=== PATIENT | female | born 1995 | race Caucasian/White ===

== ENCOUNTER 2017-04-14 11:30 | Emergency (ER) | payer BC ==
[2017-04-14 11:42] VITALS: BP 118/76
--- NOTE | 2017-04-14 11:59 | UC ---
Respiratory Complaint HPI - HPI Summary HPI Summary: cough x 1 week + chest congestion, nasal congestion, pnd no fever, no chills , no sob - History of Current Complaint Chief Complaint: UCRespiratory Stated Complaint: COUGH Time Seen by Provider: 04/14/17 11:52 Hx Obtained From: Patient Onset/Duration: Gradual Onset, Lasting Days - 6, Still Present Timing: Constant Severity Initially: Moderate Severity Currently: Moderate Character: Cough: Productive Aggravating Factors: Exertion, Deep Breaths Alleviating Factors: Nothing Associated Signs And Symptoms: Positive: Negative, URI, Nasal Congestion. Negative: Fever, Chills, Pleuritic Chest Pain, Wheezing, Calf Pain, Calf Swelling - Allergies/Home Medications Allergies/Adverse Reactions: Allergies Allergy/AdvReac Type Severity Reaction Status Date / Time No Known Allergies Allergy Verified 04/14/17 11:42 Home Medications: Home Medications NK [No Home Medications Reported] 04/14/17 [History Confirmed 04/14/17] PMH/Surg Hx/FS Hx/Imm Hx Previously Healthy: Yes - Surgical History Surgical History: Yes Surgery Procedure, Year, and Place: [place] 09/2016 - Family History Known Family History: Negative: Diabetes, Other - appendix removal - Social History Alcohol Use: None Substance Use Type: None Smoking Status (MU): Never Smoked Tobacco Review of Systems Constitutional: Negative Skin: Negative Eyes: Negative ENT: Sore Throat, Nasal Discharge Respiratory: Cough All Other Systems Reviewed And Are Negative: Yes Physical Exam Triage Information Reviewed: Yes Appearance: Well-Appearing, No Pain Distress, Well-Nourished Vital Signs: Initial Vital Signs Temp 98.5 F 04/14/17 11:40 Pulse 97 04/14/17 11:40 Resp 14 04/14/17 11:40 BP 118/76 04/14/17 11:40 Pulse Ox 100 04/14/17 11:40 Vital Signs Reviewed: Yes Eyes: Positive: Conjunctiva Clear ENT: Positive: Normal ENT inspection, Hearing grossly normal, Pharynx normal Neck exam: Normal Neck: Positive: Supple, Nontender, No Lymphadenopathy Respiratory Exam: Normal Respiratory: Positive: Chest non-tender, Lungs clear, Normal breath sounds Cardiovascular: Positive: RRR, No Murmur, Pulses Normal Skin Exam: Normal UC Diagnostic Evaluation - Laboratory O2 Sat by Pulse Oximetry: 100 Respiratory Course/Dx - Differential Dx/Diagnosis Provider Diagnoses: uri Discharge - Discharge Plan Condition: Stable Disposition: HOME Patient Education Materials: Upper Respiratory Infection (ED) Referrals: Roscoe Wilson MD [Primary Care Provider] - If Needed Additional Instructions: viral illness, no need for Antibiotics rest , increase fluid, follow up as needed
== END 2017-04-14 12:12 | disposition home or self-care (01) ==
LOC: UCCORT 11:30
DX: J06.9 Acute upper respiratory infection, unspecified (principal)
CPT/HCPCS: 99211; G0463

== ENCOUNTER 2018-11-09 17:04 | Emergency (ER) | payer BC ==
--- NOTE | 2018-11-09 17:14 | UC ---
Respiratory Complaint HPI - HPI Summary HPI Summary: 23 yo female presents with sinus pain/pressure/congestion and cough producing green phlegm. Has felt feverish and fatigued. Symptoms presents for 2 days. Has taken ibuprofen for fever and discomfort with good relief. Denies sore throat, SOB, chest pain, abdominal pain, n/v. Did not get a flu shot this year. - History of Current Complaint Stated Complaint: COUGH,FLU LIKE SXS Time Seen by Provider: 11/09/18 17:14 Hx Obtained From: Patient Onset/Duration: Sudden Onset Severity Initially: Moderate Severity Currently: Moderate Pain Intensity: 5 Pain Scale Used: 0-10 Numeric - Allergies/Home Medications Allergies/Adverse Reactions: Allergies Allergy/AdvReac Type Severity Reaction Status Date / Time No Known Allergies Allergy Verified 11/09/18 17:17 Home Medications: Home Medications Control 1 tab PO DAILY 11/09/18 [History Confirmed 11/09/18] D-Methorphan/PE/Acetaminophen [Vicks Dayquil Liquid] 30 ml PO Q8HR PRN 11/09/18 [History Confirmed 11/09/18] Ibuprofen 600 mg PO Q6HR PRN 11/09/18 [History Confirmed 11/09/18] PMH/Surg Hx/FS Hx/Imm Hx - Additional Past Medical History Additional PMH: none - Surgical History Surgical History: Yes Surgery Procedure, Year, and Place: [place] 09/2016 - Family History Known Family History: Negative: Diabetes, Other - appendix removal - Social History Occupation: Employed Part-time, Student Lives: With Family Alcohol Use: None Substance Use Type: None Smoking Status (MU): Never Smoked Tobacco Review of Systems All Other Systems Reviewed And Are Negative: Yes Constitutional: Positive: Fever, Fatigue, Other - Body aches Skin: Positive: Negative Eyes: Positive: Negative ENT: Positive: Nasal Discharge, Sinus Congestion, Sinus Pain/Tenderness Respiratory: Positive: Cough Cardiovascular: Positive: Negative Gastrointestinal: Positive: Negative Neurovascular: Positive: Negative Neurological: Positive: Negative Psychological: Positive: Negative Physical Exam - Summary Physical Exam Summary: GENERAL: NAD. WDWN. No pain distress. SKIN: No rashes, sores, lesions, or open wounds. HEENT: Head: AT/NC Eyes: EOM intact. Conjunctiva clear without inflammation or discharge. Ears: Hearing grossly normal. TMs intact, no bulging, erythema, or edema. Nose: Nasal mucosa mildly swollen and erythematous without discharge. NTTP maxillary and frontal sinus. Positive post nasal drip Throat: Posterior oropharynx without exudates, erythema, or tonsillar enlargement. Uvula midline. NECK: Supple. Nontender. No lymphadenopathy. CHEST: CTAB. No r/r/w. No accessory muscle use. Breathing comfortably and in no distress. CV: RRR. Without m/r/g. Pulses intact. NEURO: Alert. PSYCH: Age appropriate behavior. Triage Information Reviewed: Yes Vital Signs: Vital Signs: Temp Pulse Resp BP Pulse Ox 98.0 F 108 16 136/78 97 11/09/18 17:20 11/09/18 17:20 11/09/18 17:20 11/09/18 17:20 11/09/18 17:20 Laboratory Tests 11/09/18 17:31 Influenza A (Rapid) Positive A Vital Signs Reviewed: Yes Respiratory Course/Dx - Course Course Of Treatment: POC Flu A positive. She has no comorbidities and exam is WNL - advised rest, fluids, and tylenol/ibuprofen. - Differential Dx/Diagnosis Provider Diagnosis: Influenza A Discharge - Sign-Out/Discharge Documenting (check all that apply): Patient Departure All imaging exams completed and their final reports reviewed: No Studies - Discharge Plan Condition: Stable Disposition: HOME Patient Education Materials: Influenza (DC) Referrals: No Primary Care Phys,NOPCP [Primary Care Provider] - Additional Instructions: If you develop a fever, shortness of breath, chest pain, new or worsening symptoms - please call your PCP or go to the ED. Alternate tylenol and ibuprofen for fever and discomfort. - Billing Disposition and Condition Condition: STABLE Disposition: Home
[2018-11-09 17:24] VITALS: BP 136/78
== END 2018-11-09 17:49 | disposition home or self-care (01) ==
LOC: UCCORT 17:04
DX: J09.X2 Influenza due to identified novel influenza A virus with other respiratory manifestations (principal)
CPT/HCPCS: 99211; G0463